=== PATIENT | female | born 1995 | race Two or more races ===

== ENCOUNTER 2019-06-03 23:50 | Emergency (ER) | payer BC ==
[~2019-06-03] VITALS: Ht 165.1 cm; Wt 90.7 kg
[2019-06-04 00:02] VITALS: BP 159/84
[2019-06-04 00:11] LABS: BILIRUBIN,URINE NEGATIVE (NEG); CLARITY,URINE CLEAR; COLOR,URINE YELLOW; NITRITE,URINE NEGATIVE (NEG); PROTEIN,URINE NEGATIVE (NEG-TRACE); UROBILINOGEN,URINE 0.2 mg/dL (0.2 mg/dL)
[2019-06-04 00:21] LABS: BACTERIA,URINE FEW /HPF (0-FEW); RBC,URINE 0 /HPF (0-2); SQUAMOUS EPITHELIAL CELL,UR FEW /LPF; WBC,URINE 0 /HPF (0-4)
--- NOTE | 2019-06-04 00:46 | PHYS DOC ---
Past Medical History Past Medical History: No Pertinent History (AYDEE GIBSON APRN) Past Surgical History: No Surgical History (AYDEE GIBSON APRN) Alcohol Use: Rarely Drug Use: None (AYDEE GIBSON APRN) Adult General Chief Complaint Chief Complaint: PELVIC PAIN HPI HPI Patient is a 23 year old male who presents to the ED today complaining of 9 out of 10 sharp constant pelvic pain that began 30 minutes prior to coming to the ED. Patient states the pain is bilateral. Denies anything specifically exacerbating or relieving the pain. Denies any nausea vomiting. Denies any chance she is . (AYDEE GIBSON APRN) Review of Systems Review of Systems Constitutional: Denies fever or chills [] Eyes: Denies change in visual acuity, redness, or eye pain [] HENT: Denies nasal congestion or sore throat [] Respiratory: Denies cough or shortness of breath [] Cardiovascular: No additional information not addressed in HPI [] GI: Reports bilateral pelvic pain, denies, nausea, vomiting, bloody stools or diarrhea [] : Denies dysuria or hematuria [] Musculoskeletal: Denies back pain or joint pain [] Integument: Denies rash or skin lesions [] Neurologic: Denies headache, focal weakness or sensory changes [] All other systems were reviewed and found to be within normal limits, except as documented in this note. (AYDEE GIBSON APRN) Current Medications Current Medications Current Medications Medications (Trade) Dose Ordered Sig/Lorena Start Time Stop Time Status Last Admin Dose Admin Acetaminophen/ Hydrocodone Bitart (Lortab 5/325) 1 tab 1X ONCE 06/04/19 01:00 06/04/19 01:01 DC 06/04/19 00:52 1 TAB Naproxen (Naprosyn) 500 mg 1X ONCE 06/04/19 01:00 06/04/19 01:01 DC 06/04/19 00:51 500 MG (BEAR KC DO) Allergies Allergies Allergies Coded Allergies Type Severity Reaction Last Updated Verified No Known Drug Allergies 06/04/19 No (BEAR KC DO) Physical Exam Physical Exam Constitutional: Well developed, well nourished, no acute distress, non-toxic appearance. [] HENT: Normocephalic, atraumatic, bilateral external ears normal, oropharynx moist, no oral exudates, nose normal. [] Eyes: PERRLA, EOMI, conjunctiva normal, no discharge. [] Neck: Normal range of motion, no tenderness, supple, no stridor. [] Cardiovascular:Heart rate regular rhythm, no murmur [] Lungs & Thorax: Bilateral breath sounds clear to auscultation [] Abdomen: Bowel sounds normal, soft, no tenderness, no masses, no pulsatile masses. [] Pelvic exam External pelvic appears normal, cervix is visualized, closed, no CMT, no adnexal tenderness, trace amount of white discharge in the vaginal vault Skin: Warm, dry, no erythema, no rash. [] Back: No tenderness, no CVA tenderness. [] Extremities: No tenderness, no cyanosis, no clubbing, ROM intact, no edema. [] Neurologic: Alert and oriented X 3, normal motor function, normal sensory function, no focal deficits noted. [] Psychologic: Affect normal, judgement normal, mood normal. [] (AYDEE GIBSON APRN) Current Patient Data Vital Signs Vital Signs Date Time Temp Pulse Resp B/P (MAP) Pulse Ox O2 Delivery O2 Flow Rate FiO2 06/04/19 00:52 Room Air 06/04/19 00:02 97.2 102 12 159/84 (109) 99 97.2 (BEAR KC DO) Lab Values Laboratory Tests Test 06/04/19 00:01 06/04/19 00:02 Urine Collection Type Unknown Urine Color Yellow Urine Clarity Clear Urine pH 7.0 Urine Specific [place] <=1.005 Urine Protein Negative mg/dL (NEG-TRACE) Urine Glucose (UA) Negative mg/dL (NEG) Urine Ketones (Stick) Negative mg/dL (NEG) Urine Blood Trace (NEG) Urine Nitrite Negative (NEG) Urine Bilirubin Negative (NEG) Urine Urobilinogen Dipstick 0.2 mg/dL (0.2 mg/dL) Urine Leukocyte Esterase Negative (NEG) Urine RBC 0 /HPF (0-2) Urine WBC 0 /HPF (0-4) Urine Squamous Epithelial Cells Few /LPF Urine Bacteria Few /HPF (0-FEW) Urine Opiates Screen Neg (NEG) Urine Methadone Screen Neg (NEG) Urine Barbiturates Neg (NEG) Urine Phencyclidine Screen Neg (NEG) Urine Amphetamine/Methamphetamine Neg (NEG) Urine Benzodiazepines Screen Neg (NEG) Urine Cocaine Screen Neg (NEG) Urine Cannabinoids Screen Pos (NEG) Urine Ethyl Alcohol Pos (NEG) POC Urine HCG, Qualitative Hcg negative (Negative) Microbiology 06/04/19 Wet Prep - Final, Complete (BEAR KC DO) EKG EKG [] (AYDEE GIBSON APRN) Radiology/Procedures Radiology/Procedures [] (AYDEE GIBSON APRN) Course & Med Decision Making Course & Med Decision Making Pertinent Labs and Imaging studies reviewed. (See chart for details) This is a 23-year-old female patient presenting to the ED today with pelvic pain that began 30 minutes prior to coming to the ED. Negative urine hCG, urine analysis is negative for infection. Prelimary pelvic ultrasound noted for dermoid cyst on the left ovary. Patient was provided [facility] for follow-up. Discharged with Flagyl for BV. (AYDEE GIBSON APRN) Dragon Disclaimer Dragon Disclaimer This electronic medical record was generated, in whole or in part, using a voice recognition dictation system. (AYDEE GIBSON APRN) Departure Departure Impression: Primary Impression: Bacterial vaginosis Additional Impression: Dermoid cyst of left ovary Disposition: HOME, SELF-CARE Condition: STABLE Referrals: NO PCP (PCP) JACKLYN NORMAN Jr, MD follow up with the provided OBGYN in 1 week or your own OBGYN Patient Instructions: Ovarian Cyst Additional Instructions: You were evaluated in the emergency room for pelvic pain, you have bacterial vaginosis, we put you on antibiotics for this ensure you complete them. DO NOT DRINK WHILE ON THE ANTIBIOTIC. Your pelvic ultrasound was noted for dermoid cyst. This type of cyst needs be followed up with an [facility] in 1-2 weeks Scripts Diclofenac Potassium (DICLOFENAC POTASSIUM) 50 Mg Tablet 1 TAB PO BID, #20 TAB 0 Refills Prov: AYDEE GIBSON APRN 06/04/19 Metronidazole (FLAGYL) 500 Mg Tablet 500 MG PO TID, #30 TAB Prov: AYDEE GIBSON APRN 06/04/19 Attending Signature Attending Signature I have reviewed the PA/[employer]'s note and plan of care. I was available for consultation as needed during the patient's visit in the emergency department. I agree with the clinical impression, plan, and disposition. (BEAR KC DO) Problem Qualifiers AYDEE GIBSON APRN Jun 04, 2019 00:46 BEAR KC DO Jun 04, 2019 03:34
[2019-06-04] MEDS ORDERED: HYDROcodone/APAP 5/325MG 1 TAB TABLET PO ONE (01:00)
[2019-06-04] MEDS ORDERED: NAPROXEN 500 MG TABLET PO ONE (01:00)
[2019-06-04] MEDS ORDERED: DICL50TA2 PO (01:04)
[2019-06-04] MEDS ORDERED: METR500T PO (01:04)
--- NOTE | 2019-06-04 01:15 | RAD ---
Transabdominal and transvaginal ultrasound the pelvis. HISTORY: Pelvic pain Transabdominal ultrasound was performed. The bladder was not distended. Uterus is poorly seen pole. Ovaries are not identified. Transvaginal ultrasound was performed. Uterus measured 8.4 x 3.6 x 4 cm. Endometrium was 1 1 cm in thickness probably related to the phase of the menstrual cycle. A uterine mass is not identified. There is a trace of free fluid in the cul-de-sac. Right ovary was identified measuring 3.2 x 3.3 x 2.4 cm. There are small follicles in the right ovary. There is flow in the right ovary with color imaging and Doppler. Left ovary is enlarged measuring 4.9 x 6 x 3.9 cm. The ovary is posterior to the uterus. There is a complex lesion associated with the left ovary with areas of decreased and increased echogenicity. A dermoid of the ovary would be possible. MRI could be of benefit for further evaluation. IMPRESSION: 1. Left ovarian mass. 2. Normal uterus and right ovary. Electronically signed by: Harsha Whiteside MD (06/04/2019 1:12 AM) [facility]
[2019-06-04 01:27] LABS: BARBITURATES NEG (NEG); BENZODIAZEPINES NEG (NEG); CANNABINOIDS POS (NEG); COCAINE NEG (NEG); METHADONE NEG (NEG); OPIATES NEG (NEG); PHENCYCLIDINE NEG (NEG)
[2019-06-04 01:30] LABS: AMPHETAMINE/METHAMPHETAMINE NEG (NEG)
[2019-06-05 18:09] LABS: GC PROBE Negative (Negative)
== END 2019-06-04 01:10 | disposition home or self-care (01) ==
LOC: ER 23:50
DX: D27.1 Benign neoplasm of left ovary (principal); N76.0 Acute vaginitis; B96.89 Other specified bacterial agents as the cause of diseases classified elsewhere
CPT/HCPCS: 76830; 76856; 80307; 81001; 81025; 87491; 87591; 99285; Q0111